=== PATIENT | male | born 1970 | race Two or more races ===

== ENCOUNTER 2022-05-30 07:37 | Outpatient (CLI) | payer OTHER ==
[~2022-05-30 07:37] MED LIST: DORYX100 MG PO
== END 2022-05-30 07:38 | disposition home or self-care (01) ==
LOC: NUCLEAR 07:37
PROVIDERS: ATTEND Internal Medicine Cardiovascular Disease
DX: I25.2 Old myocardial infarction (principal)
CPT/HCPCS: 78452; 93017; A9500